=== PATIENT | female | born 2000 | race Caucasian/White ===

== ENCOUNTER → 2023-06-09 14:33 | Outpatient (BNVA) | payer MEDICAID, SELFPAY | PROVIDERS: PCP Internal Medicine; Visit Provider Nurse Practitioner Family ==

== ENCOUNTER → 2023-07-01 12:58 | Outpatient (BNV) | payer MEDICAID, SELFPAY | PROVIDERS: PCP Internal Medicine; Referring Provider Internal Medicine; Visit Provider Internal Medicine Medical Oncology | DX: D64.9 Anemia, unspecified (principal) | CPT/HCPCS: 99204 ==

== ENCOUNTER 2024-07-22 09:45 | Outpatient (REF) | payer MEDICAID, SELFPAY ==
--- OUTSIDE RECORDS SUMMARY | 2024-07-22 10:47 | XMS_ITS | Encounter Summary ---
Author Organization [employer] Address [address] [facility] 7t [place] [address] Care Team Providers Care Network Operations Lead Name Role Phone Kaylie Vizcaino MD Primary Care Provider + Reason for Visit * Reason Comments Annual Exam Encounter Details Date Type Department Care Team (Late st Contact Info) Description 07/01/2024 9:15 AM EST Office Visit [facility] MED[facility]INE [address] [place], [place] [phone] Kaylie Vizcaino MD [address] [place], [place] [phone] Iron deficiency anemia due to chronic blood loss (Primary Dx); Healthcare maintenance Social History Tobacco Use Types Packs/Day Years Used Date Smoking Tobacco: Never Smokeless Tobacco: Never Alcohol Use Standard Drinks/Week Comments Never 0 (1 standard drink = 0.6 oz pur e alcohol) Depression Answer Date Recorded Patient Health Questionnaire-9 Score 0 06/24/2023 Patient Health Questionnaire-9 Score 0 06/24/2023 Last PHQ-9: Questionnaire Data Not on file 0 06/24/2023 Housing Stability Answer Date Recorded What is your housing situation today? I have michael rico 07/01/[address] you li ve. Do you have problems with any of the following? None of the above 07/01/2024 Food Insecurity Answer Date Recorded Within the past 12 months, y ou worried that your food would run out before you got money to buy more: Never True 07/01/2024 Within the past 12 months,th e food you bought just didn't last and you didn't have enough money to get more: Never True Transportation Answer Date Recorded In the past 12 months, has l ack of transportation kept you from medical appts, meetings, work or from getting things needed for daily living? No 07/01/2024 Utilities Answer Date Recorded In the past 12 months, has t he electric, gas, oil or water company threatened to shut off services in your home? No 07/01/2024 Depression Answer Date Recorded Patient Health Questionnaire-2 Score 0 07/01/2024 Internet Access Answer Date Recorded Internet Access Q1 No 07/01/2024 Internet Access Q2 I do not want or need it 06/12 Comments No Sex and Gender Information Value Date Recorded Sex Assigned at Female 03/10/2022 10:18 AM EDT Legal Sex Female 10:18 AM EDT Gender Identity Female 03/10/2022 10:18 AM EDT Sexual Orientation Choose not to disclose 2021 10:18 AM EDT documented as of this encounter Last Filed Vital Signs Vital Sign Reading Time Taken Comments Blood Pressure 125/78 07/01/2024 9:11 AM EST Pulse 74 07/01/2024 9:11 AM EST Temperature 36.7 ??C (98.1 ??F) 07/01/2024 9:11 AM ES T Respiratory Rate 20 07/01/2024 9:11 AM EST Oxygen Saturation 100% 07/01/2024 9:11 AM EST Inhaled Oxygen Concentration - - Weight 66.9 kg (147 lb 7 oz) 07/01/2024 9:11 AM EST Height 160 cm (5' 3 ) 07/01/2024 9:11 AM EST Body Mass Index 26.12 07/01/2024 9:11 AM EST documented in this encounter Progress Notes * Kaylie Vizcaino MD - 07/01/2024 9:15 AM EST SUBJECTIVE: Danielle Gonzalez is a 24 y.o. year old female who presents for routine physical exam. Denies recent illness, injury, or hospitalization. Patient here for PE. -PAP smear: She has never had 1 -Ophthalmology: More than 2y ago -Labs: 2022 -Dental visit:More than 2y ago -Adult IZ: Childhood IZ are uptodate, due for all boosters. -Safety: Feels safe at home and at work -Intimate Partner Violence Screening: Neg. -In Relationship: Yes -Hx STI/concern?No -Not Interested in PrEP -Lives with Parents, works FT at a day care -PHQ 2/9: Never Patient reports that she is no longer taking iron supplementation, unclear as of why she stopped, apparently she forgets to take the medications or sometimes is not motivated to do it. She tells me that she has iron pills at home and was tolerating them well. Last menstrual period 06/20/2024, she is off control. She was taking OCPs last year which helped her with dysmenorrhea and menorrhagia but she stop the medications. Her bleeding last 3 to 4 daysand she changes sanitary pads approximately 5-6 times. She feels tired most of the time, denies shortness of breath or chest pain headache or dizziness. Acute Concerns: Social History Social History Narrative Not on file Patient Active Problem List Diagnosis Elevated blood-pressure reading without diagnosis of hypertension Iron deficiency anemia due to chronic blood loss Healthcare maintenance Family History Problem Relation Name Age of Onset Kidney disease Father Diabetes type II Maternal Grandmother Other (Cancer, unspecified) Maternal Grandfather Diabetes type II Maternal Grandfather Review of Systems Constitutional: Negative for chills, fatigue and fever. HENT: Negative for congestion, ear pain, nosebleeds, rhinorrhea, sinus pressure, sore throat and trouble swallowing. Eyes: Negative for pain and discharge. Respiratory: Negative for cough, chest tightness and shortness of breath. Cardiovascular: Negative for chest pain, palpitations and leg swelling. Gastrointestinal: Negative for abdominal pain, blood in stool, constipation, diarrhea and nausea. Endocrine: Negative for polydipsia and polyuria. Genitourinary: Positive for menstrual problem. Negative for dysuria, frequency, genital sores, pelvic pain and vaginal discharge. Musculoskeletal: Negative for back pain and neck pain. Skin: Negative for rash. Allergic/Immunologic: Negative for environmental allergies. Neurological: Negative for dizziness, seizures, weakness, light-headedness and headaches. Hematological: Negative for adenopathy. Psychiatric/Behavioral: Negative for agitation, behavioral problems, self-injury and suicidal ideas. OBJECTIVE: Vitals: 07/01/24 0911 BP: 125/78 Pulse: 74 Resp: 20 Temp: 98.1 ??F (36.7 ??C) SpO2: 100% Physical Exam HENT: Right Ear: Tympanic membrane and ear canal normal. Left Ear: Tympanic membrane and ear canal normal. Mouth/Throat: Mouth: Mucous membranes are moist. Pharynx: No oropharyngeal exudate or posterior oropharyngeal erythema. Eyes: Pupils: Pupils are equal, round, and reactive to light. Cardiovascular: Rate and Rhythm: Regular rhythm. Pulses: Normal pulses. Heart sounds: Normal heart sounds. No murmur heard. Pulmonary: Breath sounds: Normal breath sounds. Abdominal: General: Bowel sounds are normal. Palpations: Abdomen is soft. Tenderness: There is no abdominal tenderness. Musculoskeletal: General: Normal range of motion. Cervical back: Neck supple. Skin: General: Skin is warm. Neurological: General: No focal deficit present. Mental Status: She is alert and oriented to person, place, and time. Psychiatric: Mood and Affect: Mood normal. Behavior: Behavior normal. Patient Health Questionnaire-2 Score: 0 Problem List Items Addressed This Visit Iron deficiency anemia due to chronic blood loss - Primary She has not been compliant with iron supplementation and never follow-up with hematology again. Check labs and follow-up at next visit Advised to start taking iron again at least once per day and will follow-up in 2 months, she is notinterested on any other referral to hematology or MEDICAL PHOTOGRAPHER at this time. Relevant Orders Comprehensive Metabolic Panel TSH with Reflex to Free T4 CBC auto differential Ferritin Vitamin B12/Folate, Serum Panel Healthcare maintenance Discussed with patient re increase fresh fruit and vegetable intake. Counseled re moderate exercise as tolerated, up to 20min/d Patient feels safe at home. PAP smear: Overdue, I encouraged her to schedule Pap smear/pelvic exam whenever she is interested. Eye exam: Overdue, not interested on eye clinic evaluation. Lipids/FBS: Overdue, will order Vaccinations: All boosters including TD and MMR are overdue, she declined TD booster and will orderMMR titers. She declines influenza and COVID immunization today. I advised her to get it at her earliest convenience at the closest retail pharmacy or in our vaccine clinic. Dental visit: Overdue. I gave her information regarding dental offices in the area Relevant Orders Lipid Panel with Reflex to Direct LDL Vitamin D, 25-Hydroxy, Total, Immunoassay T-SPOT??.TB Measles, Mumps, and Rubella (MMR) Antibodies (IgG) Panel, Immune Status Follow Up: Current Outpatient Medications on File Prior to Visit Medication Sig Dispense Refill ferrous gluconate (Fergon) 324 (38 Fe) MG tablet TAKE 1 TABLET BY MOUTH TWICE DAILY 180 tablet 0 No current facility-administered medications on file prior to visit. documented in this encounter Miscellaneous Notes * Assessment & Plan Note - Kaylie Vizcaino MD - 07/01/2024 10:01 AM EST Associated Problem(s): Healthcare maintenance Discussed with patient re increase fresh fruit and vegetable intake. Counseled re moderate exercise as tolerated, up to 20min/d Patient feels safe at home. PAP smear: Overdue, I encouraged her to schedule Pap smear/pelvic exam whenever she is interested. Eye exam: Overdue, not interested on eye clinic evaluation. Lipids/FBS: Overdue, will order Vaccinations: All boosters including TD and MMR are overdue, she declined TD booster and will orderMMR titers. She declines influenza and COVID immunization today. I advised her to get it at her earliest convenience at the closest retail pharmacy or in our vaccine clinic. Dental visit: Overdue. I gave her information regarding dental offices in the area * Assessment & Plan Note - Kaylie Vizcaino MD - 07/01/2024 9:59 AM EST Associated Problem(s): Iron deficiency anemia due to chronic blood loss She has not been compliant with iron supplementation and never follow-up with hematology again. Check labs and follow-up at next visit Advised to start taking iron again at least once per day and will follow-up in 2 months, she is notinterested on any other referral to hematology or MEDICAL PHOTOGRAPHER at this time. documented in this encounter Plan of Treatment Upcoming Encounters Date Type Department Care Team (Late st Contact Info) Description 09/09/2024 10:30 AM EDT Office Visit [facility] MED[facility]INE [address] [place], [place] [phone] Kaylie Vizcaino MD [address] [place] [address] Scheduled Orders Name Type Priority Associated Diagnoses Orde r Schedule Comprehensive Metabolic Panel Lab Routine Iron deficiency anemia due to chronic blood loss Expected: 07/01/2024 (Approximate), Expires: 07/01/2025 Lipid Panel with Reflex to Direct LDL Lab Routine Healthcare maintenance Expected: 07/01/2024 (Approximate), Expires: 07/01/2025 Vitamin D, 25-Hydroxy, Total, Immunoassay Lab Routine Healthcare maintenance Expected: 07/01/2024 (Approximate), Expires: 07/01/2025 T-SPOT??.TB Lab Routine Healthcare maintenance Expected: 07/01/2024 (Approximate), Expires: 07/01/2025 TSH with Reflex to Free T4 Lab Routine Iron deficiency anemia due to chronic blood loss Expected: 07/01/2024 (Approximate), Expires: 07/01/2025 CBC auto differential Lab Routine Iron deficiency anemia due to chronic blood loss Expected: 07/01/2024 (Approximate), Expires: 07/01/2025 Ferritin Lab Routine Iron deficiency anemia due to chronic blood loss Expected: 07/01/2024, Expires: 07/01/2025 Vitamin B12/Folate, Serum Panel Lab Routine Iron deficiency anemia due to chronic blood loss Expected: 07/01/2024, Expires: 07/01/2025 Measles, Mumps, and Rubella (MMR) Antibodies??(IgG) Panel, Immune Status Lab Routine Healthcare maintenance Expected: 07/01/2024 (Approximate), Expires: 07/01/2025 documented as of this encounter Visit Diagnoses Diagnosis Iron deficiency anemia due to chronic blood loss- Primary Iron deficiency anemia secondary to blood loss (chronic) Healthcare maintenance documented in this encounter Additional Health Concerns Assessment Noted Time PHQ-9 Depression Total Score: 0 06/24/19 24 9:31 AM EST documented as of this encounter Care Teams Network Operations Lead Relationship Specialty Start Date End Date Kaylie Vizcaino MD [address] [place] [id number] PCP - General Family Medicine 04/27/18 documented as of this encounter
--- OUTSIDE RECORDS SUMMARY | 2024-07-22 10:47 | XMS_ITS | Encounter Summary ---
Author Organization [employer] Address [address] [facility] 7t [place] [address] Care Team Providers Care Die Repairer Stamping Name Role Phone Kaylie Vizcaino MD Primary Care Provider + Reason for Visit * Reason Onset Date Comments insurance 07/01/2024 Encounter Details Date Type Department Care Team (Late st Contact Info) Description 07/01/[address] [facility] MEDICINE [address] [place], [place] [phone] Kaylie Vizcaino MD [address] [place], [place] [phone] insurance Social History Tobacco Use Types Packs/Day Years [...] AM EDT documented as of this encounter Miscellaneous Notes * Telephone Encounter - Olivia Lonny - 07/01/2024 9:05 AM EST Pt walked in for scheduled appt on 07/01/24 , pt pcp on her insurance was assigned to someone outside the clinic I informed them to go to insurance enrollment to switch it over to from [facility] , pt went and came back she said they told her she is all set they switched it over. documented in this encounter Plan of Treatment Upcoming Encounters Date Type Department Care Team (Late st Contact Info) Description 09/09/2024 10:30 AM EDT Office Visit [facility] MEDICINE [address] [place] [address] Kaylie Vizcaino MD [address] [place] [address] documented as of this encounter Visit Diagnoses Not on filedocumented in this encounter Additional Health Concerns Assessment Noted Time PHQ-9 Depression Total Score: 0 06/24/19 24 9:31 AM EST documented as of this encounter Care Teams Die Repairer Stamping Relationship Specialty Start Date End Date Kaylie Vizcaino MD [address] [place] [id number] PCP - General Family Medicine 04/27/18 documented as of this encounter
--- OUTSIDE RECORDS SUMMARY | 2024-07-22 10:47 | XMS_ITS | Encounter Summary ---
Author Organization [employer] Address [address] [facility] 7t [place] [address] Care Team Providers Care Paint Roller Covers Supervisor Name Role Phone Kaylie Vizcaino MD Primary Care Provider + Encounter Details Date Type Department Care Team (Late st Contact Info) Description 06/08/2023 Telephone [facility] MEDICINE [address] [place] [address] Kaylie Vizcaino MD [address] [place], [place] [phone] Social History Tobacco Use Types Packs/Day Years Used Date Smoking Tobacco: Never Smokeless Tobacco: Never Alcohol Use Standard Drinks/Week Comments Never 0 (1 standard drink = 0.6 oz pur e alcohol) Housing Stability Answer Date Recorded What is your housing situation today? I have michaelar rico 03/25/[address] you li ve. Do you have problems with any of the following? None of the above 03/25/2023 Food Insecurity Answer Date Recorded Within the past 12 months, y ou worried that your food would run out before you got money to buy more: Never True 03/25/2023 Within the past 12 months,th e food you bought just didn't last and you didn't have enough money to get more: Never True Transportation Answer Date Recorded In the past 12 months, has l ack of transportation kept you from medical appts, meetings, work or from getting things needed for daily living? No 03/25/2023 Utilities Answer Date Recorded In the past 12 months, has t he electric, gas, oil or water company threatened to shut off services in your home? No 03/25/2023 Depression Answer Date Recorded Patient Health Questionnaire-2 Score 0 03/25/2023 Comments Unknown Sex and Gender Information Value Date Recorded Sex Assigned at Female 03/10/2022 10:18 AM EDT Legal Sex Female 10:18 AM EDT Gender Identity Female 03/10/2022 10:18 AM EDT Sexual Orientation Choose not to disclose 2021 10:18 AM EDT documented as of this encounter Plan of Treatment Upcoming Encounters Date Type Department Care Team (Late st Contact Info) Description 09/09/2024 10:30 AM EDT Office Visit [facility] MEDICINE [address] [place] [address] Kaylie Vizcaino MD [address] [place] [address] documented as of this encounter Visit Diagnoses Not on filedocumented in this encounter Care Teams Paint Roller Covers Supervisor Relationship Specialty Start Date End Date Kaylie Vizcaino MD [address] [place] [id number] PCP - General Family Medicine 04/27/18 documented as of this encounter
--- OUTSIDE RECORDS SUMMARY | 2024-07-22 10:47 | XMS_ITS | Encounter Summary ---
Author Organization [employer] Address [address] [facility] 7t [place] [address] Care Team Providers Care Corrections Unit Supervisor Name Role Phone Kaylie Vizcaino MD Primary Care Provider + Encounter Details Date Type Department Care Team (Late st Contact Info) Description 07/19/2024 Abstract [facility] MEDICINE [address] [place] [address] Kaylie Vizcaino MD [address] [place], [place] [phone] Social History Tobacco Use Types Packs/Day Years [...] housing situation today? I have michaelar rico 07/01/[address] you [...] Description 09/09/2024 10:30 AM EDT Office Visit [facility] MEDICINE [address] [place] [address] Kaylie Vizcaino MD [address] [place] [address] documented as of this encounter Visit Diagnoses Not on filedocumented in this encounter Additional Health Concerns Assessment Noted Time PHQ-9 Depression Total Score: 0 06/24/19 24 9:31 AM EST documented as of this encounter Care Teams Corrections Unit Supervisor Relationship Specialty Start Date End Date Kaylie Vizcaino MD [address] [place] [address] PCP - General Family Medicine 04/27/18 documented as of this encounter
--- OUTSIDE RECORDS SUMMARY | 2024-07-22 10:47 | XMS_ITS | Encounter Summary ---
Author Organization [employer] Address [address] [facility] 7t [place] [address] Care Team Providers Care Internal Medicine Physician Name Role Phone Kaylie Vizcaino MD Primary Care Provider + Reason for Visit * Reason Onset Date Comments LABS 07/20/2024 I called the pat ient, regarding a Family Money Room Supervisor Medical Form. I reached a voicemail, and left a message informing her that she needs to have MMR titers done, before the form is completed. She may come to the [facility] lab at her convenience, to have them done. I asked her to return my call at ext [phone], if she has any questions. Encounter Details Date Type Department Care Team (Late st Contact Info) Description 07/20/2024 Telephone [facility] MEDICINE [address] [place] [address] Kaylie Vizcaino MD [address] [place] [address] LABS (I called the patient, regarding a Family Money Room Supervisor Medical Form. I reached a voicemail, and left a message informing her that she needs to have MMR titers done, before the form is completed. She may come to the [facility] lab at her convenience, to have them done. I asked her to return my call at ext [phone], if she has any questions.) Social History Tobacco Use Types Packs/Day Years [...] encounter Miscellaneous Notes * Telephone Encounter - Tracy Cantu MA - 07/20/2024 9:08 AM EDT I called the patient, regarding a Family Money Room Supervisor Medical Form. I reached a voicemail, and left amessage informing her that she needs to have MMR titers done, before the form is completed. She maycome to the [facility] lab at her convenience, to have them done. I asked her to return my call at ext [phone], if she has any questions. documented in this encounter Plan of Treatment Upcoming Encounters Date Type Department Care Team (Late st Contact Info) Description 09/09/2024 10:30 AM EDT Office Visit [facility] MEDICINE [address] [place] [address] Kaylie Vizcaino MD [address] [place] [address] documented as of this encounter Visit Diagnoses Not on filedocumented in this encounter Additional Health Concerns Assessment Noted Time PHQ-9 Depression Total Score: 0 06/24/19 24 9:31 AM EST documented as of this encounter Care Teams Internal Medicine Physician Relationship Specialty Start Date End Date Kaylie Vizcaino MD [address] [place] [address] PCP - General Family Medicine 04/27/18 documented as of this encounter
--- OUTSIDE RECORDS SUMMARY | 2024-07-22 10:47 | XMS_ITS | Clinical Summary ---
Author Organization [facility] Address [address] [place] [address] Care Team Providers Care Renal Technician Name Role Phone Kaylie Vizcaino MD Primary Care Provider + Allergies No known active allergies Medications ferrous gluconate (Fergon) 324 (38 Fe) MG tabletIndication s:Menorrhagia with regular cycle TAKE 1 TABLET BY MOUTH TWICE DAILY 180 tablet 10/01/2023 Active Active Problems Problem Noted Date Diagnosed Date Healthcare maintenance 06/24/2023 Overview (06/24/2023): Optometry: denies any difficulties with vision Dental: referral to [facility] Dental 06/24/23 Pap: initial pending, encouraged to schedule if/when interested Last PE: 06/24/23 Assessment & Plan (07/01/2024 10:01 AM EST): Discussed with patient re increase fresh fruit [...] overdue, she declined TD booster and will order MMR titers. She declines influenza and COVID immunization today. I advised her to get it at her earliest convenience at the closest retail pharmacy or in our vaccine clinic. Dental visit: Overdue. I gave her information regarding dental offices in the area Assessment & Plan (06/24/2023 6:46 PM EST): Outstanding vaccines: Vaccines: tetanus, COVID, flu, HPV #2. Declines all vaccines today. Encouraged to follow up if interested in the future. Iron deficiency anemia due to chronic blood loss 03/25/2023 Overview (06/24/2023): Lab Results Component Value Date HGB 8.9 (A) 03/25/2023 HGB 8.9 (A) 12/23/2022 HGB 8.9 (L) 03/20/2022 HGB 9.5 (L) 02/25/2021 - Has been referred to LIC[facility]ED EMBALMER SUPERVISOR and Heme/Onc by PCP - Upcoming Heme/Onc appt scheduled Jun 2023 at [facility] - Previous tx with ferrous sulfate and ferrous gluconate, pt had difficulty tolerating PO iron Assessment & Plan (07/01/2024 9:59 AM EST): She has not been compliant with iron supplementation and never follow-up with hematology again. Check labs and follow-up at next visit Advised to start taking iron again at least once per day and will follow-up in 2 months, she is not interested on any other referral to hematology or L[employer] EMBALMER SUPERVISOR at this time. 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 Currently asymptomatic. ED/urgent care precautions reviewed. Assessment & Plan (03/25/2023 9:41 AM EST): Most likely due to DUB. Patient not compliant with iron therapy, will try iron ferrous gluconate with Vit C. Refer to Hematology, refer for eval (parenteral iron) Elevated blood-pressure read ing without diagnosis of hypertension 03/24/2023 03/24/2023 Resolved Problems Problem Noted Date Diagnosed Date Resolved Date Menorrhagia 09/17/2018 03/24/2023 06/24/2023 Assessment & Plan (03/25/2023 9:39 AM EST): Clinical Document Improvement Educator to use Ibuprofen PRN, did not show up to opto mechanical engineer Recommended to reschedule appt with LICENSED EMBALMER SUPERVISOR, given that she refuses to start OCP Dysmenorrhea 09/06/2015 03/24/202306/2406/24/2023 Assessment & Plan (03/25/2023 9:37 AM EST): Clinical Document Improvement Educator to use Ibuprofen PRN Encounters Date Type Department Care Team Description 07/20/2024 Telephone [facility] [place] [address] Kaylie Vizcaino MD LABS (I called the patient, regarding a [employer] Form. I reached a voicemail, and left a message informing her that she needs to have MMR titers done, before the form is completed. She may come to the [facility] lab at her convenience, to have them done. I asked her to return my call at ext [phone], if she has any questions.) 07/19/[address] [phone] Kaylie Vizcaino MD 07/01/2024 9:15 AM EST Office Visit [address] [phone] Kaylie Vizcaino MD Iron deficiency anemia due to chronic blood loss (Primary Dx); Healthcare maintenance 07/01/[address] [phone] Kaylie Vizcaino MD insurance 07/01/2024 Travel 06/28/[address] [phone] Kaylie Vizcaino MD Chart prep 06/21/[address] [phone] Kaylie Vizcaino MD Appointment Request 06/15/2024 Patient Outreach [address] [phone] Kaylie Vizcaino MD Pre-visit Planning ((Unable to reach for PVP screening, LVM)) 05/05/[address] [address] Kaylie Vizcaino MD June recall from Last 3 Months Immunizations Name Administration Dates Next Due DTaP 08/22/1999,1998,1998 DTaP / Hep B / IPV 1998 HPV 9-Valent 06/29/2011 Hep B, Adolescent or Pediatric 1998,1997 HiB, unspecified 12/29/2000,1998, 9 Hib (PRP-T) 1998 IPV 12/16/2002,1998,1998 MMR 12/16/2002,05/01/1999 Meningococcal MCV4P [id number] 06/29/2011 TD (adult), 2 Lf tetanus tox oid, preservative free, adsorbed 12/22/2005 Tdap 02/20/2011 Family History Medical History Relation Name Comments Kidney disease Father Cancer, unspecified Maternal Grandfather Diabetes type II Maternal Grandfather Diabetes type II Maternal Grandmother Relation Name Status Comments Father Maternal Grandfather Maternal Grandmother Social History Tobacco Use Types Packs/Day Years Used Date Smoking Tobacco: Never Smokeless Tobacco: Never Tobacco Cessation:Counseling Given: No Alcohol Use Standard Drinks/Week Comments Never 0 [...] not to disclose 2021 10:18 AM EDT Last Filed Vital Signs Vital Sign Reading [...] Mass Index 26.12 07/01/2024 9:11 AM EST Plan of Treatment Upcoming Encounters Date Type Department Care Team (Late st Contact Info) Description 09/09/2024 10:30 AM EDT Office Visit [facility] [address] [place] [address] Kaylie Vizcaino MD [address] [place] [address] Health Maintenance Due Date Last Done Comments HIV Screening 1998 Hepatitis B Vaccines (4 of 4 - 4-dose series) 1998 1998, 1998, 1998 Alcohol/Substance Use Screening 2010 HPV Vaccines (2 - 2-dose series) 12/28/2011 06/29/2011 Pap Smear 2019 DTaP/Tdap/Td Vaccines (7 - Td or Tdap) 02/20/2021 02/20/2011, 12/22/2005, 08/22/1999, Additional history exists COVID-19 Vaccine (3 - 2024-25 season) 2024 10/17/2020, 09/26/2020 Influenza Vaccine (#1) 2024 Depression Screening 07/01/2025 07/01/2024, 06/24/19 24 Family Planning (PISQ) 07/01/2025 07/01/2024 SDOH Screening 07/01/2025 07/01/2024 Tobacco Screening 07/01/2025 07/01/2024 Zoster Vaccines (1 of 2) 2048 RSV Patients and Patients Aged 60 years or older (1 - 1-dose 75+ series) 2073 HIB Vaccines Completed 12/29/2000, 11/08, 1998, Additional history exists IPV Vaccines Completed 12/16/2002, 11/08, 1998, Additional history exists Meningococcal Vaccine Aged Out 06/29/2011 No lisa mikey eligible based on patient's age to complete this topic Hepatitis C Screening Completed 03/20/2022 Hepatitis A Vaccines Aged Out No long er eligible based on patient's age to complete this topic Pneumococcal Vaccine: Pediatrics (0 to 5 Years) and At-Risk Patients (6 to 49) Years) Aged Out No longer eligible based on patient's age to complete this topic RSV under 20 months Aged Out No longe r eligible based on patient's age to complete this topic Rotavirus Vaccines Aged Out No longer eligible based on patient's age to complete this topic Procedures Procedure Name Priority Date/Time Associated Diagnosis Comments ZZZ HISTORICAL HEPATITIS C AB W/REFL TO HCV RNA, QN, PCR Routine 03/20/2022 9:41 AM EST from Last 3 Months or Most Recently Relevant to Health Maintenance Results * HEPATITIS C AB W/REFL TO HCV RNA, QN, PCR (03/20/2022 9:41 AM EST) HEPATITIS C ANTIBODY NON-REACTI VE NON-REACT MARNI CONVERTED LEGACY LABS INDEX 0.07 <1.00 CONVERTED LEGACY LABS Comment: ?? HCV antibody was non-reactive. There is no laboratory ?? evidence of HCV infection. ?? In most cases, no further action is required. However, if recent HCV exposure is suspected, a test for HCV RNA (test code 80198) is suggested. ?? For additional information please refer to http://education.[employer]/faq/DIN49r2 (This link is being provided for informational/ educational purposes only.) ?? 03/20/2022 9:41 AM EST Kaylie Vizcaino MD HISTORICAL/NON ORDERABLE LABS Final Result CONVERTED LEGACY LABS from Last 3 Months or Most Recently Relevant to Health Maintenance Insurance [id number] Address: [facility] [address] [place] [address] Care Teams Renal Technician Relationship Specialty Start Date End Date Kaylie Vizcaino MD [address] [place] [id number] PCP - General Family Medicine 04/27/18
--- OUTSIDE RECORDS SUMMARY | 2024-07-22 10:47 | XMS_ITS | Encounter Summary ---
Author Organization [facility] Address [address] [place] [address] Care Team Providers Care Dynamics Ax Solution Architect Name Role Phone Kaylie Vizcaino MD Primary Care Provider + Reason for Visit * Reason Onset Date Comments Chart prep 06/28/2024 Encounter Details Date Type Department Care Team (Late st Contact Info) Description 06/28/2024 Telephone [facility] [address] [place], [place] [phone] Kaylie Vizcaino MD [address] [place], [place] [phone] Chart prep Social History Tobacco Use Types Packs/Day Years [...] housing situation today? I have michael rico 03/25/[address] you [...] Date Recorded Patient Health Questionnaire-2 Score 0 06/24/2023 Comments Unknown Sex and Gender Information Value Date Recorded Sex Assigned at Female 03/10/2022 10:18 AM EDT Legal Sex Female 10:18 AM EDT Gender Identity Female 03/10/2022 10:18 AM EDT Sexual Orientation Choose not to disclose 2021 10:18 AM EDT documented as of this encounter Miscellaneous Notes * Telephone Encounter - Valeria Díaz [place] - 06/28/2024 9:50 AM EST Chart Prep Labs: not done Images: not applicable Vaccines due: yes Referrals: complete Screenings: pap smear Overdue care gaps: SDOH, PHQ-9, Oral Health documented in this encounter Plan of Treatment Upcoming Encounters Date Type Department Care Team (Late st Contact Info) Description 09/09/2024 10:30 AM EDT Office Visit [facility] [address] [place] [address] Kaylie Vizcaino MD [address] [place] [address] documented as of this encounter Visit Diagnoses Not on filedocumented in this encounter Additional Health Concerns Assessment Noted Time PHQ-9 Depression Total Score: 0 06/24/19 24 9:31 AM EST documented as of this encounter Care Teams Dynamics Ax Solution Architect Relationship Specialty Start Date End Date Kaylie Vizcaino MD [address] [place] [address] PCP - General Family Medicine 04/27/18 documented as of this encounter
--- OUTSIDE RECORDS SUMMARY | 2024-07-22 10:47 | XMS_ITS | Encounter Summary ---
Author Organization [employer] Address [address] [place] [address] Care Team Providers Care Lump Maker Name Role Phone Kaylie Vizcaino MD Primary Care Provider + Encounter Details Date Type Department Care Team (Latest Contact Info) Description 07/01/2024 Travel Social History Tobacco Use Types Packs/Day Years [...] Description 09/09/2024 10:30 AM EDT Office Visit [facility] [address] [place] [address] Kaylie Vizcaino MD [address] [place] [address] documented as of this encounter Visit Diagnoses Not on filedocumented in this encounter Additional Health Concerns Assessment Noted Time PHQ-9 Depression Total Score: 0 06/24/19 24 9:31 AM EST documented as of this encounter Care Teams Lump Maker Relationship Specialty Start Date End Date Kaylie Vizcaino MD [address] [place] [id number] PCP - General Family Medicine 04/27/18 documented as of this encounter
[2024-07-22 11:23] LABS: MANUAL DIFF FLAG NO
[2024-07-22 11:41] LABS: Basophils Percent Auto 0.5 % (0-2); Eosinophils Percent Auto 0.8 % (0-4); Hematocrit 28.5 % (37.0-47.0); Hemoglobin 8.5 g/dl (12.0-16.0); Imm Gran Abs Auto 0.01 X10*3/uL (0.00-0.03); Imm Gran Pct Auto 0.3 % (0.0-0.4); Lymphocytes Absolute Auto 1.6 X10*3/uL (1.2-4.9); Lymphocytes Percent Auto 43.7 % (20-40); Mean Corpuscular HGB Conc 29.8 g/dl (31.0-35.0); Mean Corpuscular Hemoglobin 21.5 pg (27.0-33.0); Mean Platelet Volume 10.1 fL (9.4-12.3); Monocytes Absolute Auto 0.3 X10*3/uL (0.1-1.2); Monocytes Percent Auto 8.1 % (2-11); Neutrophils Absolute Auto 1.7 x10*3/uL (2.0-8.3); Neutrophils Percent Auto 46.6 % (45-73); Platelet Count 385 X10*3/uL (160-400); Red Blood Count 3.96 X10*6/uL (4.20-5.50); Red Cell Distribution Width 16.8 % (11.0-16.0); White Blood Count 3.7 X10*3/uL (4.8-10.8)
[2024-07-22 12:03] LABS: Alanine Aminotransferase 17 U/L (0-31); Albumin Level 4.2 g/dL (3.5-5.0); Alkaline Phosphatase 54 U/L (39-117); Anion Gap 9 (12-20); Aspartate Amino Transferase 22 U/L (5-31); Bilirubin Total 0.2 mg/dL (0.0-1.0); Blood Urea Nitrogen 10 mg/dL (9-16); Calcium 8.8 mg/dL (8.4-10.2); Carbon Dioxide 25 mmol/L (22-29); Chloride 109 mmol/L (96-108); Cholesterol 161 mg/dL (<200); Estimated Glomerular Filt Rate > 60; Glucose Random 89 mg/dL (60-115); HDL Cholesterol 51 mg/dL (>40); LDL Cholesterol Calculated 94 mg/dL (<100); Potassium 3.6 mmol/L (3.3-5.1); Sodium 139 mmol/L (135-145); Total Protein 7.4 g/dL (6.5-8.0); Triglycerides 82 mg/dL (<150)
[2024-07-22 12:09] LABS: Ferritin 3 ng/mL (10-122); TSH reflex Free T4 4.26 uIU/mL (0.32-4.0); Vitamin D 25-OH Total 9.9 ng/mL (>30)
[2024-07-22 12:26] LABS: Folate 14.4 ng/mL (> or = 4.0); Vitamin B12 310 pg/mL (200-900)
[2024-07-22 13:28] LABS: Reflex LDLD? No
[2024-07-22 13:53] LABS: Free T4 (Free Thyroxine) 0.76 ng/dL (0.71-1.85)
[2024-07-25 22:24] LABS: Rubella IgG Antibody 6.16 Index; Rubeola IgG (Measles) <13.50 AU/mL
[2024-07-26 00:52] LABS: TS Negative Control Passed; TS Panel A 0; TS Panel B 0; TS Positive Control Passed; TSpotTB Negative (Negative)
== END 2024-07-22 09:46 | disposition home or self-care (01) ==
LOC: HO.HHCL 09:45
PROVIDERS: Visit Provider Internal Medicine
DX: Z00.00 Encounter for general adult medical examination without abnormal findings (principal); D50.0 Iron deficiency anemia secondary to blood loss (chronic)
CPT/HCPCS: 36415; 80053; 80061; 82306; 82607; 82728; 82746; 84439; 84443; 85025; 86481; 86735; 86762; 86765